=== PATIENT | male | born 1990 | race Caucasian/White ===

== ENCOUNTER 2023-02-06 21:28 | Emergency (ER) | payer OTHER ==
[~2023-02-06] VITALS: Ht 170.2 cm; Wt 80.0 kg
[2023-02-06 21:34] VITALS: BP 125/82
== END 2023-02-06 21:44 ==
LOC: ER 21:28
DX: R68.89 Other general symptoms and signs (principal); Z00.00 Encounter for general adult medical examination without abnormal findings
CPT/HCPCS: 99283